=== PATIENT | male | born 1965 ===

== ENCOUNTER 2025-01-10 10:36 | Outpatient (CLI) | payer OTHER ==
[2025-01-10 11:35] LABS: BASO % 0.6 % (0.1-1.2); EOS # 0.03 (0.04-0.54); EOS % 0.5 % (0.7-7.0); LYMPH # 1.51 (1.18-3.74); LYMPH % 23.4 % (19.3-53.1); MEAN PLATELET VOLUME 11.50 fl (9.4-12.4); MONO # 0.51 (0.24-0.82); MONO % 7.9 % (4.7-12.5); NEUT # 4.29 (1.56-6.13); NEUT % 66.5 % (34.0-71.1); RED CELL DISTRIBUTION WIDTH 12.3 % (11.6-14.4)
[2025-01-10 12:43] LABS: ALT/SGPT 23.0 U/L (12-78); AST/SGOT 9.0 U/L (15-37); BILIRUBIN TOTAL 0.59 mg/dL (0.3-1.2); BUN CREA RATIO 23.0 (7.0-25.0); CHOL HDL RATIO 3.8 (0-5.0); CREATININE SERUM 0.74 mg/dL (0.70-1.30); GFR 108.63; GLOBULINA 3.6 G/DL (2.4-3.5); GLUCOSE FASTING 180.0 mg/dL (65-100); HDL 59.0 mg/dl (40-60); LDL 147.0 mg/dl (0-130); OSMOLALITY SERUM 285.0 MOSM/KG (275-295); PROSTATIC SPECIFIC ANTIGEN 1.06 NG/ML (0.010-4.00); T3 UPTAKE 28.0 % (33-40); T4 TOTAL 10.61 UG/DL (4.5-12.1); VLDL 17.0 (0-39)
[2025-01-10 12:45] LABS: TSH 6.62 uIU/mL (0.358-3.74)
[2025-01-11 12:25] LABS: ob POSITIVE (NEGATIVE)
== END 2025-01-10 10:43 | disposition home or self-care (01) ==
LOC: LAB 10:36
PROVIDERS: ATTEND Specialist
DX: R53.81 Other malaise (principal)